=== PATIENT | male | born 1955 | race Caucasian/White ===

== ENCOUNTER → 2016-11-27 | Outpatient (CLI) | payer OTHER ==
--- NOTE | 2016-11-27 10:36 | DX ---
PA and lateral chest. November 27, 2016. Clinical History: Possible pneumonia. Left lower lobe crackles. Comparison Study: March 17, 2015.. Findings: Patchy focal infiltrate in the retrocardiac left lower lobe is suspicious for pneumonia. Mi ld atelectasis or infiltrate, right lower lobe. Cardiac silhouette is normal. No pleural effusion.. Visualized osseous structures appear normal. Impression: Suspect retrocardiac left lower lobe pneumonia. Patchy atelectasis or infiltrate, right l ower lobe..
== END ==
LOC: BMCIMAGING 10:05
PROVIDERS: ATTEND Internal Medicine
DX: J06.9 Acute upper respiratory infection, unspecified (principal)

== ENCOUNTER 2016-12-28 19:14 | Emergency (ER) | payer OTHER ==
[2016-12-28] MEDS ORDERED: fentaNYL 100 MCG/2 ML INJ IVP ONE (19:49)
[2016-12-28] MEDS ORDERED: NS 1,000 ML IV ONE (19:49)
--- NOTE | 2016-12-28 19:51 | UCPHY ---
H & P Patient Type: Established Chief Complaint Nursing Narrative: C/o R mid abdominal pain worsening over past 3 days and diarrhea x 3 days. Pt states he was diagnosed with pnemonia 5 weeks ago. Time Seen by Provider: 12/28/16 19:44 HPI/ROS: CHIEF COMPLAINT: Abdominal pain, ongoing diarrhea HISTORY OF PRESENT ILLNESS: This is a 61-year-old male who presents reporting that 5 weeks ago he had pneumonia, was placed on azithromycin, at that same time he also had some abdominal upset. Pneumonia symptoms seem to clear the patient continued to have a mildly upset stomach and intermittent episodes of diarrhea. He now reports that over the last 3 days he has had multiple stools, brown, black, and intermittently green. He also reports right mid abdominal discomfort. No fever. No nausea. No vomiting. No further cold, cough, or sputum production. No chest pain or shortness of breath. Reports no history of diverticulitis or diverticula. No urinary complaints. REVIEW OF SYSTEMS: Aside from elements discussed in the HPI, a comprehensive 10-point review of systems was reviewed and is negative. PAST MEDICAL HISTORY: Pneumonia, anxiety, GERD SOCIAL HISTORY: Nonsmoker. Rare alcohol use. VITAL SIGNS Reviewed by me. GENERAL: Well-developed, well-nourished, resting comfortably in no respiratory distress. Somewhat anxious. HEENT: Atraumatic. Eyes: No icterus, no injection. Mouth: moist mucous membranes. No erythema or lesions. Neck: supple with no adenopathy. LUNGS: Clear to auscultation bilaterally, no wheezes, rhonchi or rales. CARDIAC: Regular rate and rhythm, no rubs, murmurs or gallops. ABDOMEN: Soft, very mild epigastric tenderness. Mild right mid abdominal tenderness. No guarding or rebound. No right lower quadrant tenderness. No distention. RECTAL: Brown stool. BACK: No CVA tenderness. EXTREMITIES: No trauma. No edema. Range of motion is normal throughout. NEURO: Alert and oriented, grossly nonfocal. SKIN: Warm and dry, no rash. PSYCHIATRIC: Normal mentation, no agitation. - Personal History Current Tetanus Diphtheria and Acellular Pertussis (TDAP): Yes Tetanus Vaccine Date: within 10 yrs - Medical/Surgical History Hx Asthma: No Hx Chronic Respiratory Disease: No Hx Diabetes: No Hx Cardiac Disease: No Hx Renal Disease: No Hx Cirrhosis: No Hx Alcoholism: No Hx HIV/AIDS: No Hx Splenectomy or Spleen Trauma: No Other PMH: med hx-gerd. surg-t&a,hernia;ANXIETY - Family History Significant Family History: No pertinent family hx - Social History Smoking Status: Never smoked Constitutional: Initial Vital Signs Temperature (C) 36.6 C 12/28/16 19:20 Heart Rate 72 12/28/16 19:20 Respiratory Rate 16 12/28/16 19:20 Blood Pressure 183/98 H 12/28/16 19:20 O2 Sat (%) 95 12/28/16 19:20 O2 Delivery Mode Room Air Allergies/Adverse Reactions: rofecoxib [From Vioxx] Allergy (Intermediate, Verified 12/28/16 19:37) indigestion Home Medications: Medication Instructions Recorded Omeprazole 12/28/16 Probiotic 12/28/16 Medical Decision Making - Diagnostics Imaging: X-ray: Chest x-ray was obtained. I viewed the images myself on the PACS system. My interpretation of the images is: No acute findings The radiologist interpretation is pending at this time. I discussed the x-ray findings with the patient. X-ray: Abdominal two view was obtained. I viewed the images myself on the PACS system. My interpretation of the images is: Large amount of stool in the right colon. No signs of obstruction The radiologist interpretation is pending at this time. I discussed the x-ray findings with the patient. ED Course/Re-evaluation: 61-year-old male presents reporting abdominal discomfort and ongoing diarrhea. History slightly difficult as the patient has had some symptoms of diarrhea for the last 5 weeks although worse over the last 3 days. No fever. He was on an antibiotic for a respiratory infection approximately 5 weeks ago. No fever. No vomiting. I did hold discussion with the patient when he 1st presented regarding etiologies which would only be diagnosed via CT scan. These include diverticulitis, appendicitis, bowel obstruction. He understands that we do not have the CT scan currently available. He elected to begin his evaluation here and to undergo further evaluation at [facility] if needed. Stools negative for occult blood. Laboratory evaluation all reassuring. Chest x-ray and abdominal x-ray obtained: Significant stool in the right hemicolon with mildly dilated small bowel. Resolution of the right lower lobe pneumonia. Discussed lab and x-ray findings with the patient. Suggested that the patient has right-sided abdominal pain may be related to stool in the right hemicolon. Patient will begin taking a stool softener and a high-fiber diet. He also understands that this intermittent abdominal pain, diarrhea, and constipation and may be related to diverticulitis. He will provide a stool [facility] He will follow up Dr. Daniel early next week. He will return if his symptoms are worsening despite the above measures. Differential Diagnosis: After obtaining the patient's history and performing an examination, differential diagnosis considered included but was not limited to appendicitis, cholecystitis, gastritis, pancreatitis, kidney stones, urinary tract infections and other causes. Differential diagnosis for the patient's diarrhea was considered including but not limited to gastroenteritis, colitis, diverticulitis, bacterial dysentery, viral diarrhea, medication effect, and malabsorption syndrome. - Data Points Laboratory Results: Laboratory Results 12/28/16 20:05 12/28/16 20:05 12/28/16 12/28/16 12/28/16 21:15 20:05 20:05 WBC 7.40 10^3/uL 10^3/uL (3.80-9.50) RBC 5.64 10^6/uL 10^6/uL (4.40-6.38) Hgb 16.0 g/dL g/dL (13.7-17.5) Hct 47.6 % % (40.0-51.0) MCV 84.4 fL fL (81.5-99.8) MCH 28.4 pg pg (27.9-34.1) MCHC 33.6 g/dL g/dL (32.4-36.7) RDW 13.4 % % (11.5-15.2) Plt Count 185 10^3/uL 10^3/uL (150-400) MPV 10.9 fL fL (8.7-11.7) Neut % (Auto) 54.3 % % (39.3-74.2) Lymph % (Auto) 35.0 % % (15.0-45.0) [place] % (Auto) 8.2 % % (4.5-13.0) Eos % (Auto) 2.0 % % (0.6-7.6) Baso % (Auto) 0.4 % % (0.3-1.7) Nucleat RBC Rel Count 0.0 % % (0.0-0.2) Absolute Neuts (auto) 4.01 10^3/uL 10^3/uL (1.70-6.50) Absolute Lymphs (auto) 2.59 10^3/uL 10^3/uL (1.00-3.00) Absolute Monos (auto) 0.61 10^3/uL 10^3/uL (0.30-0.80) Absolute Eos (auto) 0.15 10^3/uL 10^3/uL (0.03-0.40) Absolute Basos (auto) 0.03 10^3/uL 10^3/uL (0.02-0.10) Absolute Nucleated RBC 0.00 10^3/uL 10^3/uL (0-0.01) Immature Gran % 0.1 % % (0.0-1.1) Immature Gran # 0.01 10^3/uL 10^3/uL (0.00-0.10) Sodium 142 mEq/L mEq/L (134-144) Potassium 3.9 mEq/L mEq/L (3.5-5.2) Chloride 102 mEq/L mEq/L (97-110) Carbon Dioxide 26 mEq/l mEq/l (22-31) Anion Gap 14 mEq/L mEq/L (8-16) BUN 22 mg/dL mg/dL (7-23) Creatinine 1.2 mg/dL mg/dL (0.7-1.3) Estimated GFR > 60 Glucose 90 mg/dL mg/dL (70-100) Calcium 9.2 mg/dL mg/dL (8.5-10.4) Total Bilirubin 0.5 mg/dL mg/dL (0.1-1.4) Conjugated Bilirubin 0.3 mg/dL mg/dL (0.0-0.5) Unconjugated Bilirubin 0.2 mg/dL mg/dL (0.0-1.1) AST 44 IU/L IU/L (17-59) ALT 75 IU/L H IU/L (21-72) Alkaline Phosphatase 85 IU/L IU/L (38-126) Total Protein 7.0 g/dL g/dL (6.3-8.2) Albumin 4.0 g/dL g/dL (3.5-5.0) Lipase 95.0 IU/L IU/L (23-300) Stool Occult Bld Scrn NEGATIVE (NEGATIVE) Medications Given: Discontinued Medications Fentanyl (Sublimaze) 75 mcg IVP EDNOW ONE Stop: 12/28/16 19:50 Last Admin: 12/28/16 20:53 Dose: Not Given Sodium Chloride (Ns) 1,000 mls @ 0 mls/hr IV ONCE ONE PRN Reason: Wide Open Stop: 12/28/16 19:50 Last Admin: 12/28/16 20:23 Dose: 1,000 mls Departure - Departure Disposition: Home, Routine, Self-Care Clinical Impression: Abdominal pain Qualifiers: Abdominal location: unspecified location Qualified Code(s): R10.9 - Unspecified abdominal pain Diarrhea Qualifiers: Diarrhea type: unspecified type Qualified Code(s): R19.7 - Diarrhea, unspecified Condition: Good Instructions: High Fiber Diet (ED), Abdominal Pain (ED) Additional Instructions: Your x-rays demonstrate a large amount of stool in the right side of your colon. I would recommend that you take a stool softener such as Colace or MiraLax to help clear this stool. Please begin eating a high-fiber diet. Drink plenty of fluid. Please provide a stool sample and take it to [facility] for analysis. Please follow up with Dr. Daniel for re-evaluation next week. If you develop worsening pain, vomiting, worsening diarrhea, fevers, or other concerns, please seek care urgently. Referrals: Adama Daniel MD [Primary Care Provider] - As per Instructions (Please follow up with Dr. Adama Daniel next week. You should also have a blood pressure recheck.) Stand Alone Forms: Outpatient Laboratory Order - PQRS PQRS Measurement: Not applicable
[2016-12-28 20:24] LABS: % IMMATURE GRANULYOCYTES 0.1 % (0.0-1.1); ABSOLUTE IMMATURE GRANULOCYTES 0.01 10^3/uL (0.00-0.10); ADD DIFF? NO; ADD MORPH? NO; ADD SCAN? NO; ATYPICAL LYMPHOCYTE FLAG 10 (0-99); FRAGMENT RBC FLAG 0 (0-99); HEMATOCRIT 47.6 % (40.0-51.0); LEFT SHIFT FLG 0 (0-99); LIPEMIA HEMOLYSIS FLAG 80 (0-99); MEAN CELL HEMOGLOBIN 28.4 pg (27.9-34.1); MEAN CELL HEMOGLOBIN CONCENTR. 33.6 g/dL (32.4-36.7); MEAN CELL VOLUME 84.4 fL (81.5-99.8); MEAN PLATELET VOLUME 10.9 fL (8.7-11.7); PLATELET CLUMPS FLAG 10 (0-99); PLATELET COUNT 185 10^3/uL (150-400); RED BLOOD CELL COUNT 5.64 10^6/uL (4.40-6.38); RED CELL DISTRIBUTION WIDTH 13.4 % (11.5-15.2)
[2016-12-28 20:39] LABS: ALANINE AMINOTRANSFERASE 75 IU/L (21-72); ALKALINE PHOSPHATASE 85 IU/L (38-126); ANION GAP 14 mEq/L (8-16); ASPARTATE AMINOTRANSFERASE 44 IU/L (17-59); BILIRUBIN,TOTAL 0.5 mg/dL (0.1-1.4); BILIRUBIN-CONJUGATED 0.3 mg/dL (0.0-0.5); BILIRUBIN-UNCONJUGATED 0.2 mg/dL (0.0-1.1); CALCIUM 9.2 mg/dL (8.5-10.4); CARBON DIOXIDE 26 mEq/l (22-31); CHLORIDE 102 mEq/L (97-110); CREATININE 1.2 mg/dL (0.7-1.3); GLOMERULAR FILTRATION RATE > 60; GLUCOSE 90 mg/dL (70-100); POTASSIUM 3.9 mEq/L (3.5-5.2); SODIUM 142 mEq/L (134-144)
[2016-12-28 21:45] VITALS: RESP 20
[2016-12-28 21:59] VITALS: TEMP 97.9; O2SAT 95
[2016-12-28 23:03] VITALS: BP 178/103; PULSE 68
== END 2016-12-28 22:58 | disposition home or self-care (01) ==
LOC: CED 19:14
DX: R10.9 Unspecified abdominal pain (principal); R19.7 Diarrhea, unspecified; K57.92 Diverticulitis of intestine, part unspecified, without perforation or abscess without bleeding
CPT/HCPCS: 71020-PO; 74020-PO; 80048-PO; 80076-PO; 82270-PO; 83690-PO; 85025-PO; 96360-PO; 96361-PO; 99215-PO; G0463-PO; J3010

== ENCOUNTER 2017-11-28 04:35 | Emergency (ER) | payer OTHER ==
--- NOTE | 2017-11-28 05:18 | EDPHY ---
H & P Stated Complaint: left leg swelling hx of PE, DVT Time Seen by Provider: 11/28/17 05:08 HPI/ROS: Chief Complaint: Left leg pain HPI: 62-year-old male who was diagnosed with a left leg DVT in large PE last month at [facility]. Patient has been taking Pradaxa twice a day. He had an ultrasound about a week ago which showed some improvement in the clot. This morning he woke up with pain in his anterior medial left thigh. He measured his leg and felt that it was larger than the other 1 did not recall there being a difference. Denies any new chest pain or shortness of breath. No palpitations. The pain in his leg is now gone but he is concerned about the possibility of worsening PE or DVT. ROS: 10 point Review of Systems is negative except as noted in the HPI. PMH: DVT Social History: No smoking, no alcohol, no recreational drug use Family History: non-contributory Physical Exam: Gen: Awake, Alert, No Distress HEENT: Nose: no rhinorrhea Eyes: PERRLA, EOMI Mouth: Moist mucosa Neck: Supple, no JVD Chest: nontender, lungs clear to auscultation Heart: S1, S2 normal, no murmur Abd: Soft, non-tender, no guarding Back: no CVA tenderness, no midline tenderness Ext: He has left leg moderate nonpitting edema with the left thigh measuring approximately 1 in larger in diameter than the right thigh in the left calf measuring about 1 cm larger diameter than the right calf. He has no tenderness. He has normal pulses. Skin: no rash Neuro: CN II-XII intact, Sensation grossly intact, Strength 5/5 in bilateral upper and lower extremities - Personal History Current Tetanus/Diphtheria Vaccine: Unsure Tetanus Vaccine Date: within 10 yrs - Medical/Surgical History Hx Asthma: No Hx Chronic Respiratory Disease: No Hx Diabetes: No Hx Cardiac Disease: No Hx Renal Disease: No Hx Cirrhosis: No Hx Alcoholism: No Hx HIV/AIDS: No Hx Splenectomy or Spleen Trauma: No Other PMH: med hx-gerd, PE/DVT. surg-t&a,hernia;ANXIETY - Social History Smoking Status: Never smoked Constitutional: Initial Vital Signs Temperature (C) 36.6 C 11/28/17 04:37 Heart Rate 85 11/28/17 04:37 Respiratory Rate 18 11/28/17 04:37 Blood Pressure 172/99 H 11/28/17 04:37 O2 Sat (%) 97 11/28/17 04:37 O2 Delivery Mode Room Air O2 (L/minute) 2 Allergies/Adverse Reactions: rofecoxib [From Vioxx] Allergy (Intermediate, Verified 12/28/16 19:37) indigestion terbinafine [From Lamisil] Allergy (Verified 11/28/17 04:42) Home Medications: Medication Instructions Recorded Omeprazole 12/28/16 Probiotic 12/28/16 Magnesium Citrate 11/28/17 Milk of Magnesia 11/28/17 Pradaxa 11/28/17 Medical Decision Making - Diagnostics Imaging Results: Left leg duplex ultrasound shows a volume of clot in the posterior tibial to the , peroneal vein, not quite to the popliteal fossa. There is none above the knee. None in the thigh. This is per Dr. Patrick. Imaging: Discussed imaging studies w/ call person Radiologist ED Course/Re-evaluation: 62-year-old male with leg pain with a history of recent DVT and PE. Ultrasound here reveals no propagation of clot above the knee. I have compared to his ultrasound report from November 18 and there is not appear to be any change. He has no change in his respiratory status but he has no leg pain at this time. Patient is quite anxious and we have had a long discussion about this. He is concerned about the underlying cause of his unprovoked PE. He is awaiting workup for this. I have reassured him there is no evidence of new DVT at this time. He will be discharged with follow up with primary care physician, Dr. Quiroz. Departure - Departure Disposition: Home, Routine, Self-Care Clinical Impression: Leg pain Condition: Good Instructions: Leg Pain (ED) Additional Instructions: Return to the emergency department for increasing leg pain, shortness of breath , worsening swelling, redness, fevers, chills, or any other concerns. Follow up with your primary care physician and 2-3 days for further evaluation. Referrals: Jose Quiroz [Primary Care Provider] - As per Instructions
[2017-11-28 06:30] VITALS: TEMP 98.1
[2017-11-28] MEDS ORDERED: LORAZEPAM 1 MG PREPACK#4 BTL TAKEHOME ONE (07:08)
[2017-11-28 07:13] VITALS: BP 143/104; PULSE 78; RESP 16; O2SAT 96
== END 2017-11-28 07:12 | disposition home or self-care (01) ==
DX: M79.605 Pain in left leg (principal)

== ENCOUNTER 2017-12-15 13:52 | Observation (INO) | payer OTHER ==
--- NOTE | 2017-12-15 14:40 | CPEKG ---
Heart Rate: 64 RR Interval: 938 P-R Interval: 168 QRSD Interval: 92 QT Interval: 372 QTC Interval: 384 P [place]: 45 QRS [place]: 5 T Wave [place]: 10 EKG Severity - BORDERLINE ECG - EKG Impression: SINUS RHYTHM EKG Impression: PROBABLE LEFT ATRIAL ABNORMALITY Electronically Signed By: Barbara Noland 15-Dec-2017 22:28:28
--- NOTE | 2017-12-15 15:17 | EDPHY ---
H & P Stated Complaint: Hx PE;experienced midsternal CP today during walk, resolved Time Seen by Provider: 12/15/17 14:36 HPI/ROS: CHIEF COMPLAINT: Chest HISTORY OF PRESENT ILLNESS: This is a 62-year-old male with a history of pulmonary embolus for which he is taking Pradaxa twice daily. He presents after experiencing 2 episodes of upper substernal chest pain while hiking up a small incline today. He has done this hike 3 times previously without pain. After developing pain he stopped and the pain subsided. However, it returned when he again began to walk. He has a pulse ox with him and noticed that his oxygen saturation dropped from the usual 97-98% down to 94-95%. His heart rate increased to 115, which is higher than he usually experiences while walking/ hiking. He stopped the hike and presented to the emergency department. His pulmonary embolus was diagnosed on October 20 at [facility]. 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 He was hospitalized and placed on heparin, then transitioned to Pradaxa. He takes his Pradaxa religiously. He has also been walking daily, 5 miles. He has been oxygen dependent since the diagnosis of his PE. At the time it was diagnosed he was discovered to have left leg DVT. He recalls an episode in September when he had the sudden onset of severe left leg pain. He has hyperlipidemia that he treats with exercise. No personal history of hypertension or diabetes. He does not use tobacco products. He has no family history of early coronary disease. REVIEW OF SYSTEMS: A ten point review of systems was performed and is negative with the exception of the items mentioned in the HPI. Past medical history: 1. PE 2. Hyperlipidemia 3. GERD 4. Anxiety Family history: No history of VTE, early heart disease. Father with CAD or aortic aneurysm, he isn't certain. 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 No tobacco products. General Appearance: Alert. Vital signs reviewed. Blood pressure 164/96. Eyes: Pupils equal and round, no conjunctival injection, no discharge. Anicteric. ENT, Mouth: Mucous membranes are moist, no oropharyngeal erythema or edema. Neck: No lymphadenopathy, supple. Respiratory: Lungs are clear to auscultation; no wheezes, rales, or rhonchi. Cardiovascular: Regular rate and rhythm; no murmur, rub, or gallop. Gastrointestinal: Abdomen is soft and nontender, no masses or organomegaly, bowel sounds normal. Skin: Warm and dry, no rashes on exposed skin, normal color. Back: Nontender to palpation over the thoracolumbar spine. No CVAT. Extremities: No lower extremity edema, no calf tenderness or swelling. Neurological: Alert and oriented. Moving all four extremities easily and equally. Psychiatric: Normal affect. - Personal History Current Tetanus Diphtheria and Acellular Pertussis (TDAP): Yes Tetanus Vaccine Date: within 10 yrs - Medical/Surgical History Hx Asthma: No Hx Chronic Respiratory Disease: No Hx Diabetes: No Hx Cardiac Disease: No Hx Renal Disease: No Hx Cirrhosis: No Hx Alcoholism: No Hx HIV/AIDS: No Hx Splenectomy or Spleen Trauma: No Other PMH: med hx-gerd, PE/DVT. surg-t&a,hernia;ANXIETY - Social History Smoking Status: Never smoked Constitutional: Initial Vital Signs Temperature (C) 36.5 C 12/15/17 13:54 Heart Rate 73 12/15/17 13:54 Respiratory Rate 18 12/15/17 13:54 Blood Pressure 164/96 H 12/15/17 13:54 O2 Sat (%) 97 12/15/17 13:54 O2 Delivery Mode Room Air O2 (L/minute) 2 Allergies/Adverse Reactions: rofecoxib [From Vioxx] Allergy (Intermediate, Verified 12/15/17 13:54) indigestion terbinafine [From Lamisil] Allergy (Verified 12/15/17 13:54) Home Medications: Medication Instructions Recorded Dabigatran Etexilate Mesyl 150 mg PO BID 12/15/17 [Pradaxa 150 MG (*)] Docusate Sodium [Colace 100 MG (*)] 100 mg PO BID PRN 12/15/17 Herbals/Supplements -Info Only 1 ea PO DAILY 12/15/17 [place]-3 Fatty Acids [Fish Oil 1000 1,000 mg PO DAILY 12/15/17 mg (*)] Omeprazole [Prilosec 20 mg] 20 mg PO DAILY 12/15/17 clonazePAM [Klonopin (*)] 0.5 mg PO DAILY PRN 12/15/17 Medical Decision Making - Diagnostics EKG Interpretation: 12 lead EKG is interpreted in Trace master View by emergency department physician. ED Course/Re-evaluation: 62 year old male with exertional chest pain and recent PE for which he is taking Pradaxa. EKG and first troponin WNL. HEART score is four (moderate, risk of major adverse coronary event within six weeks 12-16.6%, admission recommended). I suspect that his GERD is part of the issue and that anxiety is also playing a role. He is pain free in the ED. His blood pressure was high at triage--he denies history of HTN. Differential Diagnosis: Chest pain including but not limited to myocardial ischemia, GERD, pulmonary embolus, chest wall pain, pleural inflammation and pulmonary infectious causes. - Data Points Laboratory Results: Laboratory Results 12/15/17 14:42 12/15/17 14:42 Medications Given: Discontinued Medications Clonazepam (Klonopin) 0.5 mg PO DAILY PRN PRN Reason: Anxiety Stop: 06/13/18 18:17 Last Admin: 12/16/17 01:32 Dose: 0.5 mg Dabigatran (Pradaxa) 150 mg PO BID СЕРГЕЙ Stop: 06/13/18 20:59 Last Admin: 12/16/17 08:12 Dose: 150 mg Docusate Sodium (Colace) 100 mg PO BID PRN PRN Reason: Constipation Stop: 06/13/18 18:17 Last Admin: 12/16/17 08:16 Dose: 100 mg Lorazepam (Ativan) 1 mg PO EDNOW ONE Stop: 12/15/17 17:03 Last Admin: 12/15/17 17:06 Dose: 1 mg Pantoprazole Sodium (Protonix) 40 mg IVP BID [facility] Stop: 06/13/18 20:59 Last Admin: 12/16/17 08:12 Dose: 40 mg Departure - Departure Disposition: [facility] Inpatient Acute Clinical Impression: Chest pain Qualifiers: Chest pain type: other chest pain Qualified Code(s): R07.89 - Other chest pain ; R07.8 - Other chest pain Condition: Good
[2017-12-15 15:20] LABS: PLATELET COUNT 198 10^3/uL (150-400)
[2017-12-15 15:27] LABS: INR 1.16 (0.83-1.16)
[2017-12-15] MEDS ORDERED: LORazepam 1 MG TAB PO ONE (17:02)
[2017-12-15] MEDS ORDERED: ONDANSETRON DISINTEGRATING 4 MG TAB PO PRN (18:00)
[2017-12-15] MEDS ORDERED: ACETAMINOPHEN 325 MG TAB PO PRN (18:00)
[2017-12-15] MEDS ORDERED: LORazepam 2 MG/ML INJ IVP PRN (18:00)
[2017-12-15] MEDS ORDERED: ONDANSETRON 4 MG/2 ML VIAL IVP PRN (18:00)
[2017-12-15] MEDS ORDERED: LORazepam 0.5 MG TAB PO PRN (18:00)
[2017-12-15] MEDS ORDERED: ZOLPIDEM TARTRATE 5 MG TAB PO PRN (18:00)
[2017-12-15] MEDS ORDERED: ALBUTEROL 3 ML DEYVIAL IH PRN (18:00)
[2017-12-15] MEDS ORDERED: clonazePAM 0.5 MG TAB PO PRN (18:18)
--- NOTE | 2017-12-15 19:34 | GHP ---
[f rep st] HISTORY AND PHYSICAL DATE OF ADMISSION: 12/15/2017 CHIEF COMPLAINT: Chest pain. HISTORY OF PRESENT ILLNESS: A 62-year-old male with a recent history of a pulmonary embolus who pres ents today with chest pain. The gentleman's history dates to 05/29/2016, when he was evaluated here for chest pain and had a Emanuel protocol nuclear stress test, which was entirely negative, exercising till 11 METs. He was noted at the time to have GERD and was changed to famotidine to prevent rebound reflux. He also has a known history of hyperlipidemia which he decides to treat without medication using only exercise and diet. In 10/2017, he was diagnosed with a large-volume pulmonary embolus, "s addle embolus," and is currently on Pradaxa 150 mg b.i.d. He has been taking the medication faithful ly, exercising 5 miles a day faithfully, using oxygen during his exercise, and maintaining his oxygen saturation above 95% during exercise. Today, while on his usual of hiking, he noted he was slightly more short of breath and his heart rate slightly higher to 115. His oxygen saturation, he felt, was now only 94% and not above 95%, and he experienced chest pain, which went away when he stopped walki ng. He then started his walk again, developed a chest pain in his anterior chest, substernal, rated 5/10 to 6/10 without radiation, and the pain again stopped whenever he was no longer exercising. As a result of this, he presented to the emergency department for evaluation, where he was noted to have normal vital signs, normal oxygenation on room air at 94%, and himself admits that he is slightly an xious. He is still having his chest pain, although it is much decreased. The pain, again, is an ach ing pain, substernal, without radiation to the shoulders, back, neck or arms. He feels anxious, perh aps slightly short of breath, but denies having a recent sore throat, cough, fever, chills, sweats, n ausea, vomiting. This pain also, though it is exertional, he has not noticed orthopnea or PND prior to this event. He continues to know that he has GERD for which he is taking medication and admits he has anxiety, for which he does not take medication, and has hyperlipidemia; again, he is not taking medication for this. Regarding his cardiac history, he probably has a positive family history for coronary artery disease with his father either having an acute SD or an aortic aneurysm. His risk factors would include his age, sex, family history, and known hyperlipidemia that is untreated. He denies having hypertension. Regarding the pulmonary embolus, it was diagnosed as noted. He is taking Pradaxa and has taken it fa ithfully and has not missed a dose. Again, he notes his oxygen saturation is greater than 94% even o n room air, but continues to use the oxygen. He has been followed by Dr. Quiroz, his PCP. He has se en Dr. Dillon Baum in Pulmonary regarding his pulmonary care. He has not continued any cardiac foll owup. PAST MEDICAL HISTORY: 1. Pulmonary embolus, as noted above. 2. GERD, for which he is seen by Dr. Hector Lambert. The problem is still active, although he does not regularly take reflux medication. 3. Anxiety, for which he is currently untreated. 4. Hyperlipidemia, and again this is not treated with medication. ALLERGIES: None. FAMILY HISTORY: Positive for coronary artery disease or an aortic aneurysm with his father. 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 . He has never smoked cigarettes and he rarely drinks alcohol. He does not use drugs. REVIEW OF SYSTEMS: A 10-point review of systems is entirely negative. Specifically, he has had no r ecent cold, cough, sore throat, fever, chills, sweats. He also denies any recent long automobile rid es, plane rides, and he has been taking his Pradaxa regularly. There has been no history of dysuria, frequency of urination, and no recent trauma to his extremities. CURRENT MEDICATIONS: Klonopin, Diflucan, and Pradaxa 150 mg daily. PHYSICAL EXAMINATION: GENERAL: This is a pleasant, but anxious gentleman. VITAL SIGNS: His initia l blood pressure is slightly elevated. He continued to be mildly elevated throughout his ER stay. O xygen saturation is 94% on room air and supplements easily on supplemental oxygen. His heart rate in itially was in the 70s, but fell to a sinus bradycardia at approximately 55 on the monitor. HEENT: Otherwise normal. There are no signs of trauma. Hearing is normal. Tongue and buccal mucosa are wi thout signs of trauma or lesions. CHEST: Chest wall nontender to palpation with normal inspiratory excursion. LUNGS: Clear to P and A without wheezing or rales. HEART: Singular S1 and S2. No murm ur or gallop. ABDOMEN: Overweight. Normoactive bowel sounds. No masses, tenderness, organomegaly. EXTREMITIES: No edema, cyanosis, or clubbing. SKIN: Free of rashes. JOINTS: No inflammation. NEUROLOGIC/PSYCHIATRIC: Evaluation indicates that he is clearly an anxious gentleman who is interact ing appropriately and a normal cranial nerve exam. LABORATORY: CBC is normal. Coagulation with normal INR and BNP is normal with a normal troponin. ECG to my reading shows NSR at 64, normal TX and QRS intervals. There is a possible left atrial abno rmality with an inverted P wave in V1. There is also slow R-wave progression suggestive of a possibl e remote anteroseptal SD, but the ST-T wave segments are entirely normal. In comparison to a previou s cardiogram of 05/29/2016, the R-wave progression now is improved. Thus, I think this finding is a normal variant for this gentleman. There are no acute changes. ASSESSMENT: 1. Acute chest pain of possible cardiac origin. The gentleman had a completely normal stress test i n 05/2016, exercising to 11 METs in a Emanuel protocol. Thus, it is unlikely that the gentleman is hav ing acute coronary ischemia with a normal ECG and troponin, yet the story does demonstrate that he is having exertional chest pain. He does have known cardiac risk factors of hyperlipidemia, which has been untreated, and a probable family history of coronary artery disease. Thus, I believe it is prud ent to admit, cycle his troponins, and evaluate further should there be a change in his troponins or a persistence of his chest pain. A Cardiology consult will not be obtained at this point, nor will c ardiac echocardiogram, unless there is worsening of his chest pain or a change in the troponins. 2. Gastroesophageal reflux disease by history. By his own admission, he is not taking medication fo r this and takes it irregularly. It is possible, if he is taking omeprazole on an intermittent basis , he would have rebound reflux. Thus, I would suggest we change him to famotidine on a regular basis . He does see Dr. Hector Lambert and an outpatient followup here would be useful, as this may actua lly be the source of his chest pain. 3. Acute anxiety. The gentleman self admits that he is an anxious followed, and he is taking Klonop in, which I will continue. Certainly, there could be an interplay between anxiety, gastroesophageal reflux disease, and his experience of chest pain, and he will need significant reconfirmation and kelsey nforcement and assurance. 4. Hyperlipidemia. This is now untreated. I will order a fasting lipid panel on this gentleman and management of this can be directed to outpatient care with his PCP, Dr. Quiroz. 5. His code status is full. 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 6. Deep venous thrombosis prophylaxis will be with Lovenox 40 mg a day. 7. The gentleman will be admitted on observation status. TIME SPENT: 55 minutes. /[id number]/MODL
[2017-12-15] MEDS: PANTOPRAZOLE SODIUM 40 MG VIAL IVP SCH (21:00)
[2017-12-15] MEDS: DABIGATRAN ETEXILATE MESYL 150 MG CAP PO SCH (21:00)
[2017-12-16] MEDS: DOCUSATE SODIUM 100 MG CAP PO PRN ×2 (01:32→08:16)
[2017-12-16] MEDS: DABIGATRAN ETEXILATE MESYL 150 MG CAP PO SCH (08:12)
[2017-12-16] MEDS: PANTOPRAZOLE SODIUM 40 MG VIAL IVP SCH (08:12)
[2017-12-16 08:15] VITALS: RESP 18
--- NOTE | 2017-12-16 09:15 | CPEKG ---
Heart Rate: 68 RR Interval: 882 P-R Interval: 184 QRSD Interval: 96 QT Interval: 372 QTC Interval: 396 P Empire: 40 QRS Empire: -2 T Wave Empire: 12 EKG Severity - ABNORMAL ECG - EKG Impression: SINUS RHYTHM EKG Impression: CONSIDER ANTEROSEPTAL INFARCT Electronically Signed By: Ashish Painting 16-Dec-2017 15:51:21
--- NOTE | 2017-12-16 12:26 | ASMTCMCOM ---
CM Note CM Note Notes: 12/16/2017 Case Management Note Reviewed pt in rounds. There are no case management d/c needs identified d/t pt age, family support and activity levels prior to admission. There are no PT or OT orders at this time. Case Management d/c poc: anticipating independent with follow up as directed. Case Management available if d/c needs change. Date Signed: 12/16/2017 12:25 PM Electronically Signed By:Shayy Ellis RN
[2017-12-16 13:04] VITALS: BP 124/71; PULSE 70; TEMP 98.4
[2017-12-16 14:21] VITALS: O2SAT 92
--- NOTE | 2017-12-16 14:48 | GDS ---
[f rep st] DISCHARGE SUMMARY DISCHARGE DIAGNOSES: 1. Chest pain. 2. Saddle embolus, October 2017. 3. Gastroesophageal reflux disease. 4. Anxiety. 5. Hyperlipidemia. HISTORY OF PRESENT ILLNESS: A 62-year-old male who was hospitalized October 2017 with large volume saddle emboli and lower extremity DVTs, who is presenting with atypical chest pain. He usually walks 5-6 miles a day without issue. He noticed a pain in his upper chest that felt sharp without radiation. He had no associated diaphoresis, nausea, vomiting, dizziness, or lightheadedness. The pain resolved when he stopped walking. He noted on Friday, he had a twinge of left-sided pain that lasted 1 second. This has been intermittent since his PE. He had a Emanuel protocol nuclear stress in May 2016, that was negative for ischemia. He has been compliant with the Pradaxa. HOSPITAL COURSE BY PROBLEM: 1. Acute chest pain: likely anxiety-related. Had negative troponins and EKGs. Has been compliant withb Pradaxa. . If this were to recur, he could consider an outpatient treadmill test. . 2. Anxiety: suspect this is a driving factor for his presentation to the emergency room. He says it is always in the back of his mind that he has some underlying issue like cancer causing his recent clots. He states that he gets worked up when anything is related to his health. He has been intermittently taking clonazepam at home from an old prescription. I suggested an SSRI for better control. I will defer to his PCP, but will not provide further additional benzos at this time. 3. Hyperlipidemia: recommended statin, but he declined at this time. Counseled him on diet and exercise. Follow up with his PCP. 4. Recent saddle pulmonary embolism/ DVTs: followed by Dr. Dillon Baum and recently seen in clinic. They will perform hypercoagulable studies and further malignancy workup as an outpatient. MEDICATIONS: No new medications. DISPOSITION: Patient is stable for discharge. FOLLOWUP: 1. Dr. Quiroz to discuss HLD, anxiety 2. Dr. Dillon Baum. 3. Consider outpatient cardiac stress test if recurrent chest pain. PHYSICAL EXAM: VITAL SIGNS: Temperature 36.9, blood pressure 124/71, heart rate 70s, respirations 18, 94% on room air. GENERAL: Well-appearing male sitting up in chair. No acute distress. Mildly anxious. HEENT: PERRLA. EOMI. Oropharynx clear. CV: Regular rate and rhythm. No murmurs, gallops, rubs. No lower extremity edema. LUNGS: Clear bilaterally. ABDOMEN: Soft, nontender, nondistended. Positive bowel sounds. : No Lim. MUSCULOSKELETAL: 5/5 upper and lower extremity strength. NEUROLOGIC: 2 through 12 intact. PSYCH: Alert, x3, anxious, tangential, had to be redirected during interview. /[id number]/MODL Time spent on DC: 45 min counseling patient of FU plan, anxiety treatment options. MTDD
[2017-12-16] MEDS ORDERED: PANTOPRAZOLE SODIUM 40 MG TAB PO SCH (21:00)
[2017-12-21] MEDS ORDERED: FLUCONAZOLE 100 MG TAB PO SCH (09:00)
== END 2017-12-16 14:50 | disposition home or self-care (01) ==
LOC: F2W 18:35
PROVIDERS: ADMIT Internal Medicine Pulmonary Disease; ATTEND Internal Medicine
DX: R07.9 Chest pain, unspecified (principal); K21.9 Gastro-esophageal reflux disease without esophagitis; F41.9 Anxiety disorder, unspecified; E78.5 Hyperlipidemia, unspecified; Z79.01 Long term (current) use of anticoagulants; Z86.711 Personal history of pulmonary embolism; Z86.718 Personal history of other venous thrombosis and embolism; Z82.49 Family history of ischemic heart disease and other diseases of the circulatory system
CPT/HCPCS: 71046; 93005; G0378

== ENCOUNTER → 2018-01-13 | Outpatient (CLI) | payer OTHER ==
[~2018-01-13] MED LIST: IOPAMIDOL (ISOVUE-370) 150 ML BTL IV ONE
== END ==
LOC: FIMAGING 10:49
PROVIDERS: ATTEND Family Medicine
DX: I74.5 Embolism and thrombosis of iliac artery (principal); I82.532 Chronic embolism and thrombosis of left popliteal vein; I82.542 Chronic embolism and thrombosis of left tibial vein; K57.30 Diverticulosis of large intestine without perforation or abscess without bleeding
CPT/HCPCS: Q9967

== ENCOUNTER → 2018-01-19 | Outpatient (CLI) | payer OTHER | LOC: FIMAGING 16:08 | PROVIDERS: ATTEND Radiology Diagnostic Radiology | DX: Z71.9 Counseling, unspecified (principal); Z86.718 Personal history of other venous thrombosis and embolism ==

== ENCOUNTER 2018-04-25 11:09 | Emergency (ER) | payer OTHER ==
--- NOTE | 2018-04-25 11:46 | EDPHY ---
H & P Time Seen by Provider: 04/25/18 11:23 HPI/ROS: CHIEF COMPLAINT: Swelling at catheterization site HISTORY OF PRESENT ILLNESS: Patient is a 62-year-old male who underwent right iliac artery stenting 2 days ago [facility]. He has had swelling and bruising at the right groin. He felt this is slightly more pronounced than what he had been warned about. He is here to have it evaluated. He has no discomfort. No nausea vomiting. No fevers or chills. REVIEW OF SYSTEMS: My complete review of systems is negative except as mentioned in the HPI. Past Medical/Surgical History: Includes GERD, PE, DVT, coronary artery disease Past surgical history: Includes iliac stenting Social history: The patient does not smoke Smoking Status: Never smoked Physical Exam: Vitals noted. Afebrile. GENERAL: Well-appearing, in no acute distress, alert. HEENT: Eyes normal to inspection, normal pharynx, no signs of dehydration. NECK: No thyromegaly, no lymphadenopathy, supple. RESPIRATORY: Clear to auscultation bilaterally, no rales, rhonchi or wheezing. CVS: Regular rate and rhythm, no rubs, murmurs, or gallops. ABDOMEN: Soft, nontender, nondistended, no organomegaly. BACK: Normal to inspection, no CVA tenderness. SKIN: Normal color, no rash, warm, dry. No pallor. EXTREMITIES: No pedal edema, no calf tenderness, no Homans sign or cords, no joint swelling. Patient's right groin is mildly swollen. There is no palpable fluctuance. No thrill. There is healing bruising. This seems consistent with catheterization 2 days ago. Patient is neurovascular intact distally. NEURO/PSYCH: Alert and oriented x3, normal mood and affect, normal motor sensory exam. No obvious cranial nerve deficit. Constitutional: Initial Vital Signs Temperature (C) 36.4 C 04/25/18 11:13 Heart Rate 78 04/25/18 11:13 Respiratory Rate 16 04/25/18 11:13 Blood Pressure 149/90 H 04/25/18 11:13 O2 Sat (%) 97 04/25/18 11:13 O2 Delivery Mode Room Air Allergies/Adverse Reactions: rofecoxib [From Vioxx] Allergy (Intermediate, Verified 12/15/17 13:54) indigestion terbinafine [From Lamisil] Allergy (Verified 12/15/17 13:54) Home Medications: Medication Instructions Recorded Dabigatran Etexilate Mesyl 150 mg PO BID 12/15/17 [Pradaxa 150 MG (*)] Docusate Sodium [Colace 100 MG (*)] 100 mg PO BID PRN 12/15/17 Herbals/Supplements -Info Only 1 ea PO DAILY 12/15/17 [place]-3 Fatty Acids [Fish Oil 1000 1,000 mg PO DAILY 12/15/17 mg (*)] Omeprazole [Prilosec 20 mg] 20 mg PO DAILY 12/15/17 clonazePAM [Klonopin (*)] 0.5 mg PO DAILY PRN 12/15/17 Plavix 04/25/18 Medical Decision Making - Diagnostics Imaging Results: Imaging Impressions Pseudoaneurysm Repair US 04/25/18 11:46 Impression: Negative right groin ultrasound with no evidence for pseudoaneurysm. Results called and discussed with MARIO ALBERTO BARAJAS M.D. on 04/25/2018 at 12:42. ED Course/Re-evaluation: In the emergency department I discussed possible etiologies with the patient. I answered all his questions. An ultrasound of his right groin was ordered. Ultrasound of groin: Please refer the dictated report by Dr. Kearns. No aneurysm noted. I discussed the result with the patient. I answered all his questions. He was given warnings prior to leaving. Differential Diagnosis: My differential includes but is not limited to aneurysm, pseudoaneurysm, vascular injury, hematoma Departure - Departure Disposition: Home, Routine, Self-Care Clinical Impression: Groin hematoma Qualifiers: Encounter type: initial encounter Qualified Code(s): S30.1XXA - Contusion of abdominal wall, initial encounter Condition: Good Instructions: Pseudoaneurysm (ED) Additional Instructions: Return with increasing pain, swelling, fever or any other concerns. Your ultrasound was normal. Referrals: Jose Quiroz [Primary Care Provider] - 5-7 days, call for appt.
[2018-04-25 13:10] VITALS: BP 158/97
== END 2018-04-25 13:08 | disposition home or self-care (01) ==
DX: I97.630 Postprocedural hematoma of a circulatory system organ or structure following a cardiac catheterization (principal); I25.10 Atherosclerotic heart disease of native coronary artery without angina pectoris

== ENCOUNTER → 2018-09-07 | Outpatient (CLI) | payer OTHER | LOC: FIMAGING 16:00 | PROVIDERS: ATTEND Internal Medicine | DX: Z09 Encounter for follow-up examination after completed treatment for conditions other than malignant neoplasm (principal); Z86.718 Personal history of other venous thrombosis and embolism ==

== ENCOUNTER 2018-09-20 20:03 | Emergency (ER) | payer OTHER ==
--- NOTE | 2018-09-20 20:59 | EDPHY ---
H & P Time Seen by Provider: 09/20/18 20:28 HPI/ROS: HPI Left calf pain. 63-year-old male presents to the emergency department complaining of mid left focal calf pain, onset this morning. He has a history of DVTs and right iliac occlusion. He had his right iliac vein stented. He is currently on Xarelto. Denies any right groin a right lower extremity discomfort. No shortness of breath. Denies any significant swelling in the left calf. No history of trauma. ROS: Constitutional: No fever, no chills. No weakness. Respiratory: No cough. No shortness of breath. Cardiac: No chest pain, no palpitations. Musculoskeletal: As above. Skin: No rashes. Neurological: No focal weakness or altered sensation. Past medical history: GERD, PE/DVT as above, coronary artery disease. Social history: Nonsmoker. Here by himself. No alcohol. Physical Exam: General Appearance: Alert, no distress. This patient is responding to questions appropriately and in full sentences. This patient appears well- hydrated and well-nourished. Eyes: Pupils equal and round no pallor or injection. No lid edema, erythema or injection. Left lower extremity exam: No asymmetric swelling in comparison to the right lower extremity. No palpable cords, negative Homans sign. Mild and vague mid medial calf musculature belly tenderness on palpation. No erythema, warmth or ecchymosis noted. Left lower extremity is neurovascularly intact. Neurological: Motor sensory function is grossly intact. Cranial nerves are normal. Gait is normal. Skin: Warm and dry, no rashes. Musculoskeletal: Neck is supple and nontender. Extremities are symmetrical. All joints range without pain or impingement. Psychiatric: No agitation. No depression. Database: EKG: Imaging: Left lower extremity ultrasound: Negative for DVT. Results were discussed with staff radiologist Dr. Ronald Schaffer. Procedures: Emergency department course: Triage vital signs reviewed. He is moderately hypertensive. Vital signs are otherwise normal. He is afebrile. 10:00 p.m., the patient was re-evaluated, resting comfortably at this time. I discussed the results of his left lower extremity ultrasound with him. He feels comfortable going home at this time. Follow-up and return to emergency department precautions reviewed with him. All of his questions were answered. He was discharged from the emergency department in good condition. Differential Diagnosis: The differential diagnosis on this patient includes but is not limited to calf muscle strain. DVT, thrombophlebitis unlikely. This represents a partial list of diagnoses considered. These considerations are based on history, physical exam, past history, reassessment and diagnostic testing. Smoking Status: Never smoked Constitutional: Initial Vital Signs Temperature (C) 36.5 C 09/20/18 20:05 Heart Rate 85 09/20/18 20:05 Respiratory Rate 18 09/20/18 20:05 Blood Pressure 176/95 H 09/20/18 20:05 O2 Sat (%) 94 09/20/18 20:05 O2 Delivery Mode Room Air Allergies/Adverse Reactions: rofecoxib [From Vioxx] Allergy (Intermediate, Verified 12/15/17 13:54) indigestion terbinafine [From Lamisil] Allergy (Verified 12/15/17 13:54) Home Medications: Medication Instructions Recorded Herbals/Supplements -Info Only 1 ea PO DAILY 12/15/17 [place]-3 Fatty Acids [Fish Oil 1000 1,000 mg PO DAILY 12/15/17 mg (*)] Omeprazole [Prilosec 20 mg] 20 mg PO DAILY 12/15/17 clonazePAM [Klonopin (*)] 0.5 mg PO DAILY PRN 12/15/17 Crestor 09/20/18 Rivaroxaban [Xarelto] 20 mg PO DAILY 09/20/18 Medical Decision Making - Diagnostics Imaging Results: Imaging Impressions Extremity Venous Study 09/20/18 20:31 Impression: There is no sonographic evidence of deep or superficial vein thrombosis in the left lower extremity. Findings were discussed with Miroslava Berumen MD at 21:48, on 2017. Departure - Departure Disposition: Home, Routine, Self-Care Clinical Impression: Pain of left calf, History of DVT of lower extremity Condition: Good Instructions: Muscle Strain (ED) Additional Instructions: Read and follow provided instructions. Follow-up with your primary care physician in 1-2 days for re-evaluation. Take your medication as prescribed. Return to the emergency department for worsening symptoms or other serious concerns. Referrals: Sam Abdalla MD [Primary Care Provider] - As per Instructions
[2018-09-20 22:09] VITALS: BP 163/92
== END 2018-09-20 22:19 | disposition home or self-care (01) ==
DX: M79.662 Pain in left lower leg (principal); Z86.718 Personal history of other venous thrombosis and embolism